=== PATIENT | male | born 1985 | race Caucasian/White ===

== ENCOUNTER 2021-10-27 10:54 | Emergency (ER) | payer BC ==
[2021-10-27] MEDS ORDERED: TYLENOL325 M1 PO (11:24)
[2021-10-27] MEDS ORDERED: NAPROXEN250 MG PO (11:24)
== END 2021-10-27 12:00 | disposition home or self-care (01) ==
LOC: ED 10:54
DX: S49.91XA Unspecified injury of right shoulder and upper arm, initial encounter (principal); W18.39XA Other fall on same level, initial encounter; Y93.89 Activity, other specified; Y92.89 Other specified places as the place of occurrence of the external cause; Y99.8 Other external cause status